=== PATIENT | female | born 1985 | race Native Hawaiian/Other Pacific Islander ===

== ENCOUNTER 2019-01-23 14:02 | Day surgery (SDC) | payer BC, OTHER ==
[2019-01-23 14:02] VITALS: BMI 33.6
--- NOTE | 2019-01-23 15:14 | ED PDOC ---
HPI: Abdomen Time Seen by Provider: 01/23/19 14:46 Chief Complaint (Nursing): Abdominal Pain Chief Complaint (Provider): right flank pain History Per: Patient History/Exam Limitations: no limitations Onset/Duration Of Symptoms: Days Associated Symptoms: Back Pain (right flank pain). denies: Fever, Chills, Nausea, Vomiting Additional Complaint(s): Shailesh Hay is a 33 year old female, with no significant past medical history, who presents to the emergency department with referral from urologist for possible OR visit. Patient was recently diagnosed with a right sided renal stone. Patient states she was being treated with antibiotics, however pain has worsened. She is unsure what work up needs to be done in the ED. Patient has no allergies or medical history. She denies any fever, chills, nausea, vomit, dysuria or other medical complaints. PMD: Juanjo Miles Past Medical History Reviewed: Historical Data, Nursing Documentation, Vital Signs Vital Signs: Last Vital Signs Temp 98.9 F 01/23/19 14:24 Pulse 91 H 01/23/19 14:24 Resp 18 01/23/19 14:24 BP 135/79 01/23/19 14:24 Pulse Ox 99 01/23/19 14:24 - Medical History PMH: Anxiety, HTN, Hypothyroidism, Kidney Stones, Chronic Kidney Disease - Surgical History Surgical History: Appendectomy, Cholecystectomy - Family History Family History: States: Unknown Family Hx - Home Medications Home Medications: Ambulatory Orders Medication Instructions Recorded Ciprofloxacin [Cipro] 500 mg PO BID 01/23/19 Levothyroxine [Synthroid] 75 mcg PO DAILY 01/23/19 Lisinopril [Zestril] 20 mg PO DAILY 01/23/19 Methenam/Sod Phos/Mblue/Hyoscy 1 tab PO QID PRN 01/23/19 [Urogesic-Blue] diaZEpam [Valium] 5 mg PO Q8 PRN 01/23/19 - Allergies Allergies/Adverse Reactions: Allergies Allergy/AdvReac Type Severity Reaction Status Date / Time Penicillins Allergy RASH Verified 01/23/19 09:15 Review of Systems ROS Statement: Except As Marked, All Systems Reviewed And Found Negative Constitutional: Negative for: Fever, Chills Gastrointestinal: Positive for: Other (right flank pain). Negative for: Nausea, Vomiting Genitourinary Female: Negative for: Dysuria Physical Exam - Reviewed Nursing Documentation Reviewed: Yes Vital Signs Reviewed: Yes - Physical Exam Appears: Positive for: No Acute Distress, Uncomfortable (pacing around the ED room) Head Exam: Positive for: ATRAUMATIC, NORMAL INSPECTION, NORMOCEPHALIC Skin: Positive for: Normal Color, Warm, Dry Eye Exam: Positive for: Normal appearance, EOMI, PERRL Neck: Positive for: Normal, Painless ROM, Supple Cardiovascular/Chest: Positive for: Regular Rate, Rhythm. Negative for: Murmur Respiratory: Positive for: Normal Breath Sounds. Negative for: Respiratory Distress Gastrointestinal/Abdominal: Positive for: Tenderness (right flank and right abdominal ) Back: Positive for: Normal Inspection. Negative for: L CVA Tenderness, R CVA Tenderness Extremity: Positive for: Normal ROM (upper and lower extremities). Negative for: Deformity Neurologic/Psych: Positive for: Alert, Oriented. Negative for: Motor/Sensory Deficits - Laboratory Results Result Diagrams: 01/23/19 15:10 01/23/19 15:10 - ECG O2 Sat by Pulse Oximetry: 99 (RA) Pulse Ox Interpretation: Normal Medical Decision Making Medical Decision Making: Time: 14:46 Initial Impression: Patient sent reportedly for pre-op for renal stone. Basic labs ordered. Paged Dr. Jd MD, to determine if anything needs to be done and morphine for pain. Initial Plan: --Type and screen --BMP --CBC w/ differential --PTT --PT --Chest portable [RAD] --Morphine 2 mg IVP --UA --Reevaluation 15:[address] Usman Whiteside, who is partner with Dr. Miles, states he suspects patient's stent may have moved. Agrees with basic labs and pain control. Patient had her last CT on Wednesday, no indication for additional imaging at this time. They will be in the hospital in x1 hr to take patient to the OR. 16:15 Patient is allergic to Penicillin. No past medical history, surgical history of appendicitis. Greenlandic/Mandarin account executive key accounts: #[id number] Scribe Attestation: Documented by Ayush Padgett, acting as a scribe for Pat Velarde MD Provider Scribe Attestation: All medical record entries made by the Scribe were at my direction and personally dictated by me. I have reviewed the chart and agree that the record accurately reflects my personal performance of the history, physical exam, me dical decision making, and the department course for this patient. I have also personally directed, reviewed, and agree with the discharge instructions and disposition. Disposition - Clinical Impression Clinical Impression: Abdominal pain - Disposition Disposition: Routine/Home Disposition Time: 15:10 Condition: GUARDED Forms: [facility] (Sami)
[2019-01-23 15:56] LABS: BASO # 0.1 K/uL (0.0-0.2); BASO % 0.5 % (0.0-2.0); EOS # 0.2 K/uL (0.0-0.7); EOS % 1.5 % (0.0-4.0); HEMOGLOBIN 13.6 g/dL (12.0-16.0); LYMPH % 17.7 % (20.0-40.0); MEAN CELL VOLUME 86.3 fl (81.0-99.0); MEAN CORPUSCULAR HEMOGLOBIN 28.3 pg (27.0-31.0); MEAN CORPUSCULAR HGB CONC 32.8 g/dL (33.0-37.0); MEAN PLATELET VOLUME 8.9 fl (7.2-11.7); MONO # 0.5 K/uL (0.0-0.8); MONO % 4.1 % (0.0-10.0); NEUT # 8.6 K/uL (1.8-7.0); NEUT % 76.2 % (50.0-75.0); RBC 4.81 Mil/uL (3.80-5.20); RED CELL DISTRIBUTION WIDTH 13.6 % (11.5-14.5); WHITE BLOOD COUNT 11.3 K/uL (4.8-10.8)
[2019-01-23 16:02] LABS: INR 1.1; PROTHROMBIN TIME 12.9 Seconds (9.8-13.1)
[2019-01-23 16:05] LABS: PARTIAL THROMBOPLASTIN TIME 33.5 Seconds (25.6-37.1)
[2019-01-23 16:08] LABS: SQUAMOUS EPITHIAL < 1 /hpf (0-5); URINE BILIRUBIN NEGATIVE (NEGATIVE); URINE BLOOD LARGE (NEGATIVE); URINE CLARITY CLOUDY (Clear); URINE COLOR YELLOW (YELLOW); URINE GLUCOSE (UA) NEG (NEGATIVE); URINE LEUKOCYTE ESTERASE SMALL Leu/uL (Negative); URINE PROTEIN >=500 mg/dL (NEGATIVE); URINE UROBILINOGEN 0.2-1.0 mg/dL (0.2-1.0)
[2019-01-23] MEDS ORDERED: Iohexol 300 100 ML IJ ONE (16:10)
[2019-01-23] MEDS ORDERED: Gentamicin 80mg/50ml NS 80 MG/50 ML BAG IVPB ONE ×2 (16:10→16:45)
[2019-01-23 16:13] LABS: BLOOD UREA NITROGEN 13 mg/dl (7-17); GFR NON-AFRICAN AMERICAN > 60
[2019-01-23] MEDS ORDERED: Propofol 10 mg/ml Inj (20 ML) ONE (16:14)
[2019-01-23] MEDS ORDERED: Midazolam 2 MG/2 ML VIAL ONE (16:14)
[2019-01-23] MEDS ORDERED: Lactated Ringer's 1,000 ML IV ONE ×2 (16:33→17:30)
[2019-01-23] MEDS ORDERED: ePHEDrine 50 mg/ml Inj ONE (17:04)
[2019-01-23] MEDS ORDERED: HYDROmorphone 0.5 mg/0.5 ml ISec IVP PRN (17:32)
[2019-01-23] MEDS ORDERED: Dexamethasone 4 mg/1 ml IVP PRN (17:32)
[2019-01-23 18:41] VITALS: RESP 18; O2SAT 98
[2019-01-23 19:23] VITALS: BP 118/67; PULSE 76; TEMP 97.4
--- NOTE | 2019-01-24 13:11 | RAD ---
Date of service: 01/23/2019 HISTORY: Abdominal pain. COMPARISON: No prior. FINDINGS: LUNGS: No active pulmonary disease. PLEURA: No significant pleural effusion identified, no pneumothorax apparent. CARDIOVASCULAR: No atherosclerotic calcification present Normal. OSSEOUS STRUCTURES: No significant abnormalities. VISUALIZED UPPER ABDOMEN: Normal. OTHER FINDINGS: None. IMPRESSION: No active disease.
--- NOTE | 2019-01-24 13:26 | RAD ---
Date of service: 01/23/2019 PROCEDURE: Fluoroscopic assistance in excess of 1 hour. HISTORY: CYSTOSCOPY COMPARISON: None TECHNIQUE: Standard protocol for this study/examination. FINDINGS: Total fluoroscopic time (continuous mode) utilized during the procedure 28.3 seconds. IMPRESSION: Submitted images from the current procedure: 6.0.
--- NOTE | 2019-01-30 08:26 | OP ---
PROCEDURE DATE: 01/23/2019 PREOPERATIVE DIAGNOSIS: Right ureteral stone. POSTOPERATIVE DIAGNOSIS: Right ureteral stone. PROCEDURES: Cystoscopy, right ureteroscopy, basket stone extraction of right ureteral stone, and right ureteral stent exchange. SURGEON: Usman Whiteside M.D. TESTING SHAKING SHIPPING: Juanjo Miles M.D. TYPE OF ANESTHESIA: General. SPECIMEN SENT: Right ureteral stone. DRAINS: A 6-Cuban x 22 cm right ureteral stent. CONDITION: Stable to recovery room. ESTIMATED BLOOD LOSS: Minimal. FLUIDS: IV fluids placed as per Anesthesia. INDICATION: This is a 33-year-old female with a history of a proximal right ureteral stone. She was emergently stented approximately 10 days prior to the current date of service after emergently presenting to an outside hospital with right renal colic. She was seen in followup. A repeat CAT scan revealed that she had a persistent right proximal ureteral stone and she was therefore scheduled for a definitive treatment of her right ureteral stone; however, in the intervening time, she developed significant right stent colic and presented to the [facility] this afternoon in significant discomfort. Therefore, a discussion was held with patient to perform ureteroscopy today so as to address her right urethral stone and expedite removal of the stent, which she is poorly tolerating. Risks and benefits of the procedure were discussed with the patient. She understood all the risks and benefits and wished to proceed with surgery. DESCRIPTION OF PROCEDURE: The patient was brought into the operating room and placed in the supine position. After administration of preoperative antibiotics and induction of general anesthesia, she was then positioned into dorsal lithotomy. Her hips, knees, and ankles were all appropriately padded. Her lower abdomen and genitalia were then prepped and draped in the usual sterile fashion. Time-out was called. A 22-Cuban cystoscope was then placed into the bladder. Cystourethroscopy was performed. The previously placed right ureteral stent was then grasped and brought out through the urethral meatus. A sensor tip wire was then advanced through the ureteral stent and under fluoroscopic was advanced into the right renal collecting system. At this point, a flexible ureteroscope was then brought into the field and introduced to the bladder. The ureteroscope was then advanced into the right ureter and right ureteroscopy was performed. The ureteroscope was advanced into the right proximal ureter, at which point the stone was encountered. The stone appeared approximately 3-4 mm in size; however, the ureter was quite dilated after having had the stent in place for approximately 10 days. Therefore, at this point, we passed a basket and basketed the stone. The stone was then extracted from ureter pole and sent for chemical analysis. There was still some residual inflammation in the area surrounding where the stone had been impacted. Therefore, we felt that the patient will be better served replacing her with a new stent to allow for this residual inflammation to resolve. Therefore, at this point, the flexible ureteroscope was removed. The cystoscope was then placed back into the bladder, and the sensor wire was backed cystoscope. A 6-Cuban x 22 cm ureteral stent was then advanced through the sensor wire. The proximal end of the stent was advanced such that it was within the right renal collecting system; the distal end of the stent was noted cystoscopically to be within the bladder. At this point, a sensor wire was removed coiling and the proximal end of the stent was noted to be fluoroscopically within the right renal pelvis. Distally, coiling of the stent was noted to be within the urinary bladder. A string loop was attached to the stent. The cystoscope was then used to drain the bladder and the cystoscope was removed. The string was then tucked into the patient's vagina to allow for easy access next time when it is time for stent removal. At this point, the procedure was concluded. The patient was awaken from anesthesia and transferred to recovery room in stable condition. The patient tolerated the procedure well. Usman Whiteside M.D.
== END 2019-01-23 19:25 | disposition home or self-care (01) ==
LOC: H.ER 14:02 → H.ERHOLD 16:06 → H.SDS 16:06 → UNDOADMIN 16:06 → H.SDS 19:25 → UNDODISIN 19:25
PROVIDERS: ATTEND Family Medicine
DX: N20.1 Calculus of ureter (principal); I10 Essential (primary) hypertension; E03.9 Hypothyroidism, unspecified
CPT/HCPCS: 52332; 52352; 71045; 80048; 81003; 81025; 82355; 85025; 85610; 85730; 86850; 86900; 88300; 88304; 96374; 99284; C2617; J1580; J2001; J2250; J2270; J2405; J2704; J2765; J3010; J7120; Q9967

== ENCOUNTER 2019-01-25 16:17 | Emergency (ER) | payer BC ==
[2019-01-25 16:17] VITALS: BMI 33.6
[2019-01-25 16:36] VITALS: RESP 16; O2SAT 100
[2019-01-25] MEDS ORDERED: Sodium Chloride 0.9% 1,000 ML IV STA (17:06)
--- NOTE | 2019-01-25 18:20 | ED PDOC ---
HPI: Abdomen Time Seen by Provider: 01/25/19 16:44 Chief Complaint (Nursing): Abdominal Pain Chief Complaint (Provider): abdominal pain History Per: Patient, Family () Additional Complaint(s): 33 y/o F with hx of nephrolithiasis s/p ureteral stent placement on 01/23 for obstruction who presents with worsening abdominal pain since earlier today. Denies N/V, diarrhea, dysuria, vaginal discharge. Her urologist, Dr. Whiteside, states that the pain is likely due to the stent and that he will remove the stent in ER. Past Medical History Reviewed: Historical Data, Nursing Documentation, Vital Signs Vital Signs: Last Vital Signs Temp 98.0 F 01/25/19 16:30 Pulse 71 01/25/19 16:30 Resp 16 01/25/19 16:30 BP 142/88 01/25/19 16:30 Pulse Ox 100 01/25/19 16:30 - Medical History PMH: Anxiety, HTN, Hypothyroidism, Kidney Stones, Chronic Kidney Disease - Surgical History Surgical History: Appendectomy, Cholecystectomy - Family History Family History: States: Unknown Family Hx - Home Medications Home Medications: Ambulatory Orders Medication Instructions Recorded Ciprofloxacin [Cipro] 500 mg PO BID 01/23/19 Levothyroxine [Synthroid] 75 mcg PO DAILY 01/23/19 Lisinopril [Zestril] 20 mg PO DAILY 01/23/19 Methenam/Sod Phos/Mblue/Hyoscy 1 tab PO QID PRN 01/23/19 [Urogesic-Blue Tablet] diaZEpam [Valium] 5 mg PO Q8 PRN 01/23/19 Ciprofloxacin 500 mg PO BID 2 Days ml 01/25/19 Ketorolac Tromethamine [Toradol] 10 mg PO Q6 PRN 2 Days tab 01/25/19 - Allergies Allergies/Adverse Reactions: Allergies Allergy/AdvReac Type Severity Reaction Status Date / Time Penicillins Allergy RASH Verified 01/23/19 09:15 Review of Systems Constitutional: Negative for: Fever, Chills Gastrointestinal: Positive for: Abdominal Pain. Negative for: Nausea, Vomiting, Diarrhea Genitourinary Female: Negative for: Dysuria, Frequency, Vaginal Bleeding Physical Exam - Reviewed Nursing Documentation Reviewed: Yes Vital Signs Reviewed: Yes - Physical Exam Appears: Positive for: Uncomfortable Gastrointestinal/Abdominal: Positive for: Tenderness (RLQ on palpation) Back: Negative for: L CVA Tenderness, R CVA Tenderness Neurologic/Psych: Positive for: Alert, Oriented - ECG O2 Sat by Pulse Oximetry: 100 Medical Decision Making Medical Decision Making: Toradol 30mg IV x 1 NS 1L IV x [address] Whiteside saw patient in ED and removed ureteral stent at bedside. Pt felt immediate relief. Dr. Whiteside recommends Cipro x 2 more days and Toradol 10mg PO Q6H x 2 more days. 18:00: pt refused fluids 18:20: re-evaluated, pt continues to have significant improvement in abdominal discomfort after removal of ureteral stent. Stable for d/c home with instructions to follow up with urologist in 2 days. Disposition - Clinical Impression Clinical Impression: Abdominal pain Discussed With Dr.: Usman Whiteside - Disposition Referrals: Usman Whiteside MD [Medical Doctor] - Disposition: Routine/Home Disposition Time: 18:42 Condition: STABLE Additional Instructions: Follow up with Dr. Whiteside on 01/27/19. Take Toradol as needed for pain and continue antibiotics (Cipro). Return to ER if pain worsens despite taking pain meds or if vomiting or having diarrhea. Prescriptions: Ciprofloxacin 500 mg PO BID 2 Days ml Ketorolac Tromethamine [Toradol] 10 mg PO Q6 PRN 2 Days tab PRN Reason: Pain, Moderate (4-7) Instructions: Flank Pain (DC) Forms: [employer] (Martiniquais) Print Language: YORUBA
[2019-01-25 19:20] VITALS: BP 130/70; PULSE 70; TEMP 98.2
--- NOTE | 2019-01-27 08:26 | CON ---
DATE: 01/25/2019 EMERGENCY ROOM CONSULTATION HISTORY OF PRESENT ILLNESS: This is a 33-year-old female with history of a right ureteral stone. She underwent left ureteroscopy on 01/23/2019, for persistent flank pain despite the fact that she had a stent placed emergently 10 days prior. Ureteroscopy was successful in removing her right ureteral stone and stent was replaced at that time, however, on the date of service on 01/25/2019, the patient called the office to state that she had developed right lower quadrant pain and persistent urgency and frequency. She came to the [facility] where her vital signs were taken and known to be stable. On exam, she was noted to have some right lower quadrant tenderness and some mild right CVA tenderness. It was felt that all her symptoms were likely secondary to stent colic. At this point her stent had been in place for over 2 weeks total and since she was having some much discomfort secondary to her stent it was felt that the stent should be removed in the ED. Therefore in the emergency room the right ureteral stent which was still attached to a string coming out of the patient's urethra, the stent was removed in its entirety in the emergency room by pulling on the string. The patient felt almost immediate relief after the stent was removed. Her right lower quadrant discomfort that she came in with subsided and she overall felt much better with a stent out. Discharge instructions to the emergency room was that she should be discharged with an additional 48 hours of Cipro 500 mg twice a day as well as Toradol 10 mg every 8 hours as needed for any discomfort. She is to follow up with us in the office for additional followup on 01/27/2019. The patient and her understood the plan and will follow up as scheduled. Usman Whiteside M.D. LETICIA
== END 2019-01-25 18:42 | disposition home or self-care (01) ==
LOC: H.ER 16:17
DX: R10.9 Unspecified abdominal pain (principal)
CPT/HCPCS: 96374; 99283; J1885